=== PATIENT | male | born 1945 | race Caucasian/White ===

== ENCOUNTER 2017-11-25 09:33 | Emergency (ER) | payer OTHER ==
[~2017-11-25] VITALS: Ht 185.4 cm; Wt 101.2 kg
[~2017-11-25 09:33] MED LIST: ALTACE10 MG; ASA81 MG; FAMOTIDINE40 MG; INDAPAMIDE1.25 MG; METFORMIN HCL500 MG; SIMVASTATIN40 MG
== END 2017-11-25 15:31 | disposition home or self-care (01) ==
LOC: ER 09:33
DX: K52.9 Noninfective gastroenteritis and colitis, unspecified (principal)

== ENCOUNTER 2019-01-09 06:30 | Day surgery (SDC) | payer OTHER ==
[2019-01-09] MEDS ORDERED: TYLENOL EXTRA500 MG PO (12:28)
[2019-01-09] MEDS ORDERED: TRAMADOL HCL50 MG PO (12:28)
[2019-01-09] MEDS ORDERED: ZOFRAN ODT4 MG PO (12:28)
[2019-01-09] MEDS ORDERED: MIRALAX17 GM PO (12:29)
== END 2019-01-09 17:20 | disposition home or self-care (01) ==
LOC: CIR.AMB 06:30
DX: K40.90 Unilateral inguinal hernia, without obstruction or gangrene, not specified as recurrent (principal)